=== PATIENT | male | born 1995 | race Caucasian/White ===

== ENCOUNTER → 2016-09-11 | Outpatient (CLI) | payer OTHER ==
--- NOTE | 2016-09-11 20:14 | DIAGNOSTIC IMAGING REPORT ---
LEFT KNEE 1 OR 2 VIEWS ROUTINE CLINICAL HISTORY: L KNEE PAIN/INJURY pain COMPARISON: None. DISCUSSION: The bones and joint spaces appear intact. There is no evidence of fracture, dislocation or bony disease. There is no evidence for soft tissue swelling. IMPRESSION: Negative study. The above report was generated using voice recognition software. It may contain grammatical, syntax or spelling errors. Electronically signed by: Amos Howard M.D. 09/11/2016 8:13 PM Dictated Date/Time: 09/11/2016 8:13 PM
--- NOTE | 2016-09-11 21:16 | DIAGNOSTIC IMAGING REPORT ---
LEFT LOWER EXT JOINT WITHOUT CLINICAL HISTORY: L KNEE PAIN/INJURY pain TECHNIQUE: MRI multi axial acquisition COMPARISON STUDY: None FINDINGS: Signal characteristics of the osseous structures are unremarkable. The articular services are intact throughout. No evidence for chondromalacia patella. Small joint effusion. Cruciate ligaments are intact. Small partial tear lateral collateral ligament. Medial collateral ligament is intact although mild sprain may be present. The patellofemoral joint is unremarkable. Partial tear medial patellar retinaculum IMPRESSION: 1. Small partial tear lateral collateral ligament. 2. Sprain medial collateral ligament. 3. Partial tear medial patellar retinaculum. 4. Small joint effusion The above report was generated using voice recognition software. It may contain grammatical, syntax or spelling errors. Electronically signed by: Amos Howard M.D. 09/11/2016 9:15 PM Dictated Date/Time: 09/11/2016 9:09 PM
--- NOTE | 2016-09-12 14:42 | DIAGNOSTIC IMAGING REPORT ---
LEFT KNEE 4 OR MORE VIEWS CLINICAL HISTORY: L KNEE PAIN/INJURY pain COMPARISON: None. DISCUSSION: The bones and joint spaces appear intact. There is no evidence of fracture, dislocation or bony disease. There is no evidence for soft tissue swelling. IMPRESSION: Negative study. The above report was generated using voice recognition software. It may contain grammatical, syntax or spelling errors. Electronically signed by: Amos Howard M.D. 09/11/2016 8:13 PM Dictated Date/Time: 09/11/2016 8:13 PM JACOB
== END | disposition home or self-care (01) ==
LOC: C.MRI 19:47
PROVIDERS: ATTEND Family Medicine
DX: M25.562 Pain in left knee (principal)

== ENCOUNTER → 2016-10-03 | Outpatient (CLI) | payer OTHER ==
--- NOTE | 2016-10-03 16:08 | DIAGNOSTIC IMAGING REPORT ---
LEFT LOWER EXT JOINT WITHOUT CLINICAL HISTORY: MENISCUS pain TECHNIQUE: Multiaxial MRI acquisition COMPARISON STUDY: 09/11/2016 FINDINGS: Small joint effusion slightly increased in volume from the prior exam. The articular services of the patella is unremarkable. Small suprapatellar synechiae unchanged from the prior study. Anterior and posterior cruciate ligaments are intact. Medial and lateral menisci are unremarkable in configuration. Articular services of all major joint compartments. To be intact. Mild edema of the infrapatellar fat pad. No evidence for popliteal cyst. The collateral complexes show no significant disruption. IMPRESSION: 1. Small joint effusion slightly increased in volume from the prior study. 2. Mild edema of the infrapatellar fat pad. 3. Small synechiae of the suprapatellar bursa. 4. Study is otherwise negative. The above report was generated using voice recognition software. It may contain grammatical, syntax or spelling errors. Electronically signed by: Amos Howard M.D. 10/03/2016 4:06 PM Dictated Date/Time: 10/03/2016 4:00 PM
--- NOTE | 2016-10-31 08:25 | CODING QUERY NO DIAGNOSIS ---
TREATMENT RENDERED WITHOUT A DIAGNOSIS To promote full compliance with coding requirements relating to patient care, physician participation is requested in all cases of cash applications representative uncertainty. Please assist us with providing a diagnosis/symptom for the test(s) below: A diagnosis/symptom was not documented on your Order. A valid diagnosis/symptom is required to bill all insurances. Please remember that we are unable to code a diagnosis of rule out, probable, possible, questionable, or suspected. Tests that require a diagnosis: * MRI LOWER EXT JOINT DIAGNOSIS: Provider Signature: Date: Thank you Melodie Chinle [employer] Information Management Once completed, please kindly fax back to [phone] For questions please call [phone]
== END | disposition home or self-care (01) ==
LOC: C.MRI 14:43
PROVIDERS: ATTEND Orthopaedic Surgery Sports Medicine
DX: S83.207A Unspecified tear of unspecified meniscus, current injury, left knee, initial encounter (principal); X58.XXXA Exposure to other specified factors, initial encounter; M25.462 Effusion, left knee